=== PATIENT | male | born 1985 | race Caucasian/White ===

== ENCOUNTER 2018-03-18 18:43 | Emergency (ER) | payer OTHER ==
[~2018-03-18] VITALS: Ht 180.3 cm; Wt 91.6 kg
[~2018-03-18 18:43] MED LIST: AMOXICILLIN500 M3 PO; BENADRYL/LIDO/MAALOX PO; MOTRIN800 MG PO; OXYCODONE-ACET1 EACH PO; TRAMADOL50 MG PO
--- NOTE | 2018-03-18 19:30 | ED HAND/WRIST INJURY COMPLAINT ---
History of Present Illness General Chief Complaint: Hand or Wrist Injury Stated Complaint: INJURY TO FINGER ON LEFT HAND Source: patient Exam Limitations: no limitations Vital Signs & Intake/Output Vital Signs & Intake/Output Vital Signs Date Time Temp Pulse Resp B/P B/P Pulse O2 O2 Flow FiO2 Mean Ox Delivery Rate 03/18 2024 97.8 67 18 134/68 97 Room Air 03/18 1847 98.8 94 16 139/85 98 Room Air ED Intake and Output 03/19 0000 03/18 1200 Intake Total Output Total Balance Patient 202 lb Weight Weight Estimated Measurement Method Allergies Coded Allergies: NO KNOWN ALLERGIES (08/26/16) Reconcile Medications Cephalexin (Keflex) 500 MG CAPSULE 1 CAP PO TID open tuft fx Ibuprofen 800 MG TABLET 1 TAB PO TID pain Triage Note: RECEIVED 32 YO MALE C/O HE SMASHED THE TIP OF HIS LEFT 4TH FINGER WITH A LOG TODAY. OPEN WOUND NOTED NOT ACTIVELY BLEEDING, SWELLING. OCCURED 12 NOON TODAY Triage Nurses Notes Reviewed? yes Occurred: just prior to arrival Duration: hour(s):, constant Timing: single episode today Injury Environment: home Severity: moderate, severe Pain/Injury Location: Left: 4th finger. Method of Injury: CRUSH HPI: 32-year-old male comes into the emergency room for further evaluation of left fourth finger pain. Patient reports that he was using a wood residential support specialist putting a piece of log in it and it kicked back and crushed his finger. His finger did not go into the residential support specialist but just got caught between the log and the metal on the outside. Some associated bleeding. Sharp throbbing pain. Continuous. Comes in for further evaluation. Denies any other associated symptoms. (Ramón Puentes) Past History Travel History Traveled to [place] past 21 day No Medical History Any Pertinent Medical History? 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 No (Ramón Puentes) Review of Systems Review of Systems Constitutional: Reports: no symptoms. EENTM: Reports: no symptoms. Respiratory: Reports: no symptoms. Cardiovascular: Reports: no symptoms. GI: Reports: no symptoms. Genitourinary: Reports: no symptoms. Musculoskeletal: Reports: see HPI. Skin: Reports: no symptoms. Neurological/Psychological: Reports: no symptoms. Hematologic/Endocrine: Reports: no symptoms. Immunologic/Allergic: Reports: no symptoms. All Other Systems: Reviewed and Negative (Ramón Puentes) Physical Exam Physical Exam General Appearance: well developed/nourished, mild distress Head: atraumatic Eyes: Bilateral: normal appearance. Ears, Nose, Throat: normal ENT inspection, hearing grossly normal Neck: normal inspection Cardiovascular/Respiratory: no respiratory distress Back: normal inspection Hand Left: ecchymosis (dISTAL PHALANX), swelling, tender, 4th finger, SOME DRY BLOOD, SMALL SUPERFICIAL CUT, NOTHING SUTURABLE Hand Right: normal inspection Neurologic/Tendon: normal sensation, normal motor functions, responds to pain, no evidence tendon injury Skin: intact, normal color, warm/dry (Ramón Puentes) Progress Differential Diagnosis: contusion, dislocation, fracture, sprain Plan of Care: Orders Procedure Date/time Status XRY-FINGERS, LEFT 03/18 1858 Active Diagnostic Imaging: Viewed by Me: Radiology Read. Discussed w/RAD: Radiology Read. Radiology Impression: PATIENT: RUDDY OLIVAREZ PRESENT AGE: 32 PATIENT ACCOUNT NO: [id number] : 83 LOCATION: [facility] ORDERING PHYSICIAN: Ramón MEDRANO SERVICE DATE: 03/18/18 EXAM TYPE : RAD - XRY-FINGERS, LEFT EXAMINATION: FINGER 3 VIEWS, LEFT CLINICAL INFORMATION : Left fourth digit pain and swelling. COMPARISON: None. TECHNIQUE: A PA view of the left hand is provided along with two views of the fourth digit. FINDINGS: There is a nondisplaced fracture to the tuft of the fourth distal phalanx. There is associated soft tissue swelling. IMPRESSION: Nondisplaced fracture to the tuft of the fourth distal phalanx with mild associated soft tissue swelling. DICTATED BY: Chapin Fishman MD DATE/TIME DICTATED:03/18/181951 PROCESS IMPROVEMENT SPECIALIST:SCARLET DATE/TIME TRANSCRIBED:03/18/181951 CONFIDENTIAL, DO NOT COPY WITHOUT APPROPRIATE AUTHORIZATION. <Electronically signed in Other Vendor System> SIGNED BY: Chapin Fishman MD 03/18/181955 (Ramón Puentes) Departure Departure Disposition: HOME OR SELF CARE Condition: Stable Clinical Impression Primary Impression: Open fracture of tuft of distal phalanx of finger Referrals: Jordan Ray MD Patient Has No Primary Care Dr (PCP/Family) Additional Instructions: Ibuprofen. Take Keflex as prescribed. Follow-up with plastic surgeon provided. Return if any concerns worsening symptoms. Departure Forms: Customer Survey General Discharge Information Prescriptions: Current Visit Scripts Ibuprofen 1 TAB PO TID #30 TAB Cephalexin (Keflex) 1 CAP PO TID #21 CAP Comments 03/18/2018 9:08:31 PM Wound was irrigated follow-up with plastic surgeon. Return if any other concerns. And cleaned. Bacitracin. Finger splint. Nothing suturable on exam. (Ramón Puentes) PA/CREATIVE ARTS THERAPIST Co-Sign Statement Statement: ED Attending supervision documentation- [] I saw and evaluated the patient. I have also reviewed all the pertinent lab results and diagnostic results. I agree with the findings and the plan of care as documented in the PA's/CREATIVE ARTS THERAPIST's documentation. [X] I have reviewed the ED Record and agree with the PA's/CREATIVE ARTS THERAPIST's documentation. [] Additions or exceptions (if any) to the PAs/CREATIVE ARTS THERAPIST's note and plan are summarized below: [] (Belinda ROMEO,Jeremy Tomlin) Procedures Splinting Location: LEFT FOURTH FINGER Manual Alignment Performed: No Pre-Made Type: FINGER SPLINT Splint Applied By: splint applied by me Pre-Proc Neuro Vasc Exam: normal Post-Proc Neuro Vasc Exam: normal (Ramón Puentes)
--- NOTE | 2018-03-18 19:56 | RADIOLOGY REPORT ---
EXAMINATION: FINGER 3 VIEWS, LEFT CLINICAL INFORMATION: Left fourth digit pain and swelling. COMPARISON: None. TECHNIQUE: A PA view of the left hand is provided along with two views of the fourth digit. FINDINGS: There is a nondisplaced fracture to the tuft of the fourth distal phalanx. There is associated soft tissue swelling. IMPRESSION: Nondisplaced fracture to the tuft of the fourth distal phalanx with mild associated soft tissue swelling.
[2018-03-18] MEDS ORDERED: IBUPROFEN800 M1 PO (19:57)
[2018-03-18] MEDS ORDERED: KEFLEX500 M1 PO (19:57)
[2018-03-18 20:24] VITALS: BP 134/68
== END 2018-03-18 20:24 ==
LOC: ERH 18:43
DX: S62.665B Nondisplaced fracture of distal phalanx of left ring finger, initial encounter for open fracture (principal); W23.0XXA Caught, crushed, jammed, or pinched between moving objects, initial encounter; Y93.89 Activity, other specified; Y92.009 Unspecified place in unspecified non-institutional (private) residence as the place of occurrence of the external cause
CPT/HCPCS: 73140-LT